=== PATIENT | male | born 1995 ===

== ENCOUNTER → 2025-02-04 | Outpatient (REF) | payer OTHER ==
[2025-02-04 14:11] LABS: SEMEN APPEARANCE OPAQUE (OPAQUE); SEMEN VISCOSITY LIQUID (LIQUID); SEMEN VOLUME 6.2 ml (2.0-5.0); SPERM CONCENTRATION 13.4 M/ml (>=15.0); TOTAL PROGRESSIVE SPERM 32.4 M/Ejac.; WBC CONCENTRATION <=1 M/ml (<=1 M/ml)
== END ==
LOC: M LAB REF 13:57
PROVIDERS: ATTEND General Practice
DX: N46.8 Other male infertility (principal)